=== PATIENT | female | born 1960 | race Caucasian/White ===

== ENCOUNTER 2024-07-08 21:26 | Emergency (ER) | payer MEDICARE, SELFPAY ==
[2024-07-08 21:27] VITALS: BP 151/86
--- NOTE | 2024-07-08 22:05 | ED.MUSCINJ ---
HPI-Injury
General
Chief Complaint: Musculo-Skeletal Complaint
Source: patient
Exam Limitations: none
Time Seen by Provider: 07/08/24 21:36
History of Present Illness-Injury
Initial Injury comments:
64-year-old female [id number] presents complaining of left shoulder pain after a fall. She fell backwards and onto her left shoulder. She complains of pain to the clavicle area. No headache. No new neck pain. No numbness or tingling.
She is not anticoagulated. No other complaints
Phy Exam
Physical Exam
Physical Exam:
General: Well-appearing female no acute respiratory distress
Musculoskeletal exam: Cervical spine nontender she is tender over the mid to distal clavicle area. The shoulder itself is nontender the elbow is nontender.
Vascular: 2+ radial pulse left wrist
Neurologic: Alert and oriented
Injury Course
Orders/Labs/Results
Orders:
Orders
07/08/24 21:27
CR Clavicle - Left Complete Urgent
Comment:
Reason For Exam: injury
07/08/24 22:05
Sling Left-Treatment ONCE
Oxycodone/Acetaminophen [Percocet 5/325] 1 tablet PO NOW STA
MDM/Problems Addressed
Differential Diagnosis Includes:
Left clavicle pain. I have personally visualized x-rays of the left clavicle which demonstrate a mid to distal fracture. No significant displacement. No associated glenohumeral injury. Patient placed in a sling and given pain medicine. Will
advise follow-up with orthopedics. Urged to follow-up with Nancy
*Critical Care Note
Total Time (30-74mins, 75-104mins- exclusive of procedures): Not Applicable
ED Attending Note
-
Portions of this chart may have been created with voice recognition software.� Occasional wrong word or��sound alike� substitutions may have occurred due to the inherent limitations of voice recognition software.
Discharge Plan
Departure
Patient Disposition: Home (Routine Discharge)
Date of Disposition: 07/08/24
Time of Disposition: 22:07
Patient with high blood pressure during this ER visit?: No
Discharge Problem:
Clavicle fracture
Instructions: Muscle and Bone Pain (DC)
Prescriptions:
New
oxycodone-acetaminophen [Percocet] 5-325 mg tablet
1 tab PO TID PRN (Reason: Pain) Qty: 10 0RF
oxycodone-acetaminophen 5-325 mg tablet
1 tab PO TID PRN (Reason: Pain) Qty: 10 0RF
Referrals:
Sergey Aguilar MD [Active] -
Activity Restrictions/Additional Instructions:
As discussed, you have a clavicle fracture. Use the sling for support. Use pain medicine as needed for severe pain. Return if needed otherwise follow-up with orthopedics
Interventions
Interventions:
*Risk Screen - Suicide Last Done: 07/08/24 21:27
*Neglect/Abuse Screening Last Done: 07/08/24 21:27
Discharge Date and Time
Print Language: WALLISIAN
[2024-07-08] MEDS: PERCOCET 5/325 1 TABLET PO (22:13)
== END 2024-07-08 22:21 | disposition home or self-care (01) ==
LOC: EMR 21:26
PROVIDERS: EMERGENCY PHYSICIAN Emergency Medicine
DX: S42.002A Fracture of unspecified part of left clavicle, initial encounter for closed fracture (principal); W19.XXXA Unspecified fall, initial encounter
CPT/HCPCS: 99283; 73000